=== PATIENT | male | born 1955 | race Caucasian/White ===

== ENCOUNTER 2020-08-01 07:06 | Outpatient (CLI) | payer MEDICARE, OTHER ==
[~2020-08-01] VITALS: Ht 177.8 cm; Wt 105.0 kg
[~2020-08-01 07:06] MED LIST: ASPIRIN EC81 MG PO; ATORVASTATIN CA20 MG PO; EFFIENT10 MG PO; FLONASE 0.05% N16 GM; GABAPENTIN600 MG PO; GLUCOPHAGE XR500 M1 PO; HUMALOG 10100 UNITS/ SQ; HYDROCODON-ACE1 EAC6 PO; IBU600 MG PO; IMDUR ER TAB 3030 MG PO; LOPRESSOR 50 MG50 MG PO; LOTRIMIN CREAM15 GM TOP; NAPROXEN500 MG PO; NITROGLYCERIN0.4 MG SL; OMEPRAZOLE20 MG PO; OZEMPIC0.25 MG/0. SQ; PROVENTIL HFA6.7 GM INH; TRESIBA FL100 UNIT/1 SQ; XANAX0.5 MG PO; ZYLOPRIM 300 M300 MG PO
[2020-08-01 07:59] LABS: HEMOGLOBIN 14.6 gm/dl (14.0-17.5); RED BLOOD COUNT 4.97 M/UL (4.20-5.50); WHITE BLOOD COUNT 8.4 K/UL (4.5-11.0)
[2020-08-01 08:12] LABS: BUN/CREATININE RATIO 34 (0-10)
[2020-08-01] MEDS ORDERED: ALLOPURINOL300 MG PO (08:45)
[2020-08-01] MEDS ORDERED: VENTOLIN HFA 66.7 GM INH (08:45)
[2020-08-01] MEDS ORDERED: ECOTRIN81 MG PO (08:46)
[2020-08-01] MEDS ORDERED: LIPITOR40 MG PO (08:46)
[2020-08-01] MEDS ORDERED: GABAPENTIN600 MG PO (08:46)
[2020-08-01] MEDS ORDERED: HUMALOG100 UNIT/1 SC (08:47)
[2020-08-01] MEDS ORDERED: HYDROCODON-ACE1 EAC6 PO (08:47)
[2020-08-01] MEDS ORDERED: METFORMIN HCL1000 MG PO (08:48)
[2020-08-01] MEDS ORDERED: ISOSORBIDE MONO30 MG PO (08:48)
[2020-08-01] MEDS ORDERED: OMEPRAZOLE20 MG PO (08:49)
[2020-08-01] MEDS ORDERED: NITROGLYCERIN0.4 MG SL (08:49)
[2020-08-01] MEDS ORDERED: EFFIENT10 MG PO (08:50)
[2020-08-01] MEDS ORDERED: TRESIBA100 UNIT/1 SQ (08:50)
[2020-08-01] MEDS ORDERED: OZEMPIC0.25 MG/0. SQ (08:50)
[2020-08-01] MEDS ORDERED: METOPROLOL TART25 MG PO (08:53)
[2020-08-02 03:23] LABS: HEMOGLOBIN 13.4 gm/dl (14.0-17.5); WHITE BLOOD COUNT 6.8 K/UL (4.5-11.0)
[2020-08-02 03:31] LABS: BUN/CREATININE RATIO 29 (0-10)
[2020-08-02 03:33] LABS: RED BLOOD COUNT 4.47 M/UL (4.20-5.50)
[2020-08-02] MEDS ORDERED: NICOTINE PATCH1 EACH TD (08:54)
== END 2020-08-02 10:48 | disposition home or self-care (01) ==
LOC: CATH 07:06 → PROG CARE 12:12 → CATH 08-02 10:48
PROVIDERS: Internal Medicine Cardiovascular Disease
DX: I25.119 Atherosclerotic heart disease of native coronary artery with unspecified angina pectoris (principal); I25.2 Old myocardial infarction; E78.5 Hyperlipidemia, unspecified; I10 Essential (primary) hypertension; F17.210 Nicotine dependence, cigarettes, uncomplicated; E10.9 Type 1 diabetes mellitus without complications; M19.90 Unspecified osteoarthritis, unspecified site; F41.9 Anxiety disorder, unspecified; F32.9 Major depressive disorder, single episode, unspecified; Z95.5 Presence of coronary angioplasty implant and graft; Z20.822 Contact with and (suspected) exposure to COVID-19; Z82.49 Family history of ischemic heart disease and other diseases of the circulatory system; Z98.890 Other specified postprocedural states; Z88.5 Allergy status to narcotic agent; Z79.82 Long term (current) use of aspirin; Z79.899 Other long term (current) drug therapy
CPT/HCPCS: 36415; 71045; 80048; 82962; 85025; 85347; 85610; 85730; 87635; 93005; 94664; 99152; 99153; C1725; C1769; C1874; C1887; C1894; C9600; J1644; J2250; J3010; J3246; J7030; Q9967